=== PATIENT | male | born 1950 | race Caucasian/White ===

== ENCOUNTER → 2024-10-29 18:34 | Outpatient (REF) | payer MEDICARE, SELFPAY | LOC: MRI 3T 18:34 | PROVIDERS: ATTENDING PHYSICIAN Urology; FAMILY PHYSICIAN Internal Medicine Geriatric Medicine | DX: R97.20 Elevated prostate specific antigen [PSA] (principal) | CPT/HCPCS: 72197 ==

== ENCOUNTER → 2025-04-14 15:21 | Outpatient (REF) | payer OTHER, SELFPAY | LOC: RAD 15:21 | PROVIDERS: ATTENDING PHYSICIAN Nurse Practitioner Family | DX: M25.571 Pain in right ankle and joints of right foot (principal) | CPT/HCPCS: 73610 ==

== ENCOUNTER → 2025-05-01 13:37 | Outpatient (REF) | payer OTHER, SELFPAY | LOC: RCS 13:37 | PROVIDERS: ATTENDING PHYSICIAN Internal Medicine Geriatric Medicine | DX: I25.10 Atherosclerotic heart disease of native coronary artery without angina pectoris (principal); R93.1 Abnormal findings on diagnostic imaging of heart and coronary circulation | CPT/HCPCS: 93017; 93350 ==